=== PATIENT | male | born 1965 | race Caucasian/White ===

== ENCOUNTER 2019-06-05 19:13 | Emergency (ER) | payer MEDICARE ==
[2019-06-05 19:44] VITALS: BP 125/87; PULSE 83
--- NOTE | 2019-06-05 19:48 | EDM.PDOC ---
ED HPI GENERAL MEDICAL PROBLEM - General Chief Complaint: Lower Extremity Injury/Pain Stated Complaint: INJURED RIGHT FOOT Time Seen by Provider: 06/05/19 19:40 Source of Information: Reports: Patient History Limitations: Reports: No Limitations - History of Present Illness INITIAL COMMENTS - FREE TEXT/NARRATIVE: 53-year-old male dropped a 200 pound object on his right foot yesterday, since that time he is unable to bear weight and is developed some swelling and bruising over the top of the foot. He has a superficial abrasion on the anterior ceballos but no significant pain of the lower leg, his pain and concerns are concentrated in his foot. Onset: Sudden Duration: Hour(s): (Roughly 12 hours ago) Location: Reports: Lower Extremity, Right Quality: Reports: Sharp, Stabbing Worsens with: Reports: Other (Weightbearing causes significant increased pain), Movement Associated Symptoms: Reports: No Other Symptoms right foot Pain Score (Numeric/FACES): 8 - Related Data Allergies Allergy/AdvReac Type Severity Reaction Status Date / Time No Known Allergies Allergy Verified 06/05/19 19:32 Home Meds: Home Meds ALPRAZolam [Alprazolam] 1.5 mg PO BID 01/26/15 [History] Aspirin [Adult Low Dose Aspirin EC] 81 mg PO BEDTIME 01/26/15 [History] Desvenlafaxine [Pristiq] 1 tab PO BID 01/26/15 [History] Mirtazapine 1 tab PO BEDTIME 01/26/15 [History] lamoTRIgine [Lamotrigine] 25 mg PO BID 01/26/15 [History] Past Medical History Other Cardiovascular History: Enlarged heart Gastrointestinal History: Reports: GERD Other Musculoskeletal History: States 'Chicken breast" Neurological History: Reports: Migraines Psychiatric History: Reports: Antisocial Behaviors, Anxiety, Depression - Past Surgical History HEENT Surgical History: Reports: Myringotomy w Tube(s) Social & Family History - Tobacco Use Smoking Status *Q: Current Every Day Smoker Years of Tobacco use: 35 Packs/Tins Daily: 1 - Caffeine Use Caffeine Use: Reports: Coffee - Recreational Drug Use Recreational Drug Use: No Review of Systems - Review of Systems Review Of Systems: See Below Constitutional: Denies: Fever Respiratory: Reports: No Symptoms Cardiovascular: Reports: No Symptoms Skin: Reports: Bruising (On the top of the foot), Other (Abrasion on the right ceballos) Neurological: Denies: Headache Psychiatric: Reports: Anxiety ED EXAM, GENERAL - Physical Exam Exam: See Below Exam Limited By: No Limitations General Appearance: Alert, No Apparent Distress Head: Atraumatic Respiratory/Chest: No Respiratory Distress Extremities: Other (Exam is otherwise limited to the lower extremities. Patient has a superficial abrasion on the anterior aspect of the right ceballos, no underlying bony tenderness or deformity. Ankle is nontender, he has swelling and bruising over the top of the foot and is tender to palpation on the dorsal and plantar aspect of the foot.) Course - Vital Signs Last Recorded V/S: Last Vital Signs Temp 98.9 F 06/05/19 19:40 Pulse 83 06/05/19 19:40 Resp 16 06/05/19 19:40 BP 125/87 06/05/19 19:40 Pulse Ox 97 06/05/19 19:40 - Orders/Labs/Meds Orders: Active Orders 24 hr Category Date Time Status Foot Comp Min 3V Rt [CR] Stat Exams 06/05/19 19:44 Taken - Re-Assessments/Exams Free Text/Narrative Re-Assessment/Exam: 06/05/19 19:48 An x-ray of the right foot was obtained. 06/05/19 20:27 X-ray confirmed a minimally displaced transverse fracture of the third and fourth metatarsals. Patient was placed in a walking boot and encouraged to recheck with his primary provider next week. Departure - Departure Time of Disposition: 20:36 Disposition: Home, Self-Care 01 Clinical Impression: Fracture of metatarsal bone of right foot Qualifiers: Encounter type: initial encounter Metatarsal bone: third Fracture type: closed Fracture alignment: nondisplaced Qualified Code(s): S92.334A - Nondisplaced fracture of third metatarsal bone, right foot, initial encounter for closed fracture Fracture of metatarsal of right foot, closed Qualifiers: Encounter type: initial encounter Metatarsal bone: fourth Fracture alignment: nondisplaced Qualified Code(s): S92.344A - Nondisplaced fracture of fourth metatarsal bone, right foot, initial encounter for closed fracture - Discharge Information Instructions: Metatarsal Fracture Referrals: PCP,None [Primary Care Provider] - Forms: ED Department Discharge Care Plan Goals: Wear boot for support for the next 3 to 5 weeks. Use crutches initially to assist with weightbearing. Elevate the foot when able, and I would recommend you following with your primary provider next week to monitor your progress. Sepsis Event Note - Evaluation Sepsis Screening Result: No Definite Risk - Focused Exam Vital Signs: Vital Signs Temp Pulse Resp BP Pulse Ox 06/05/19 19:40 98.9 F 83 16 125/87 97 Date Exam was Performed: 06/06/19 Time Exam was Performed: 00:00 - My Orders Last 24 Hours: My Active Orders 06/05/19 19:44 Foot Comp Min 3V Rt [CR] Stat - Assessment/Plan Last 24 Hours: My Active Orders 06/05/19 19:44 Foot Comp Min 3V Rt [CR] Stat
--- NOTE | 2019-06-08 10:10 | CR ---
FOOT RIGHT 3 views CLINICAL HISTORY:Trauma FINDINGS:There are oblique essentially nondisplaced fractures of the third and fourth metatarsals Impression: Oblique fractures third and fourth metatarsals
== END 2019-06-05 20:36 | disposition home or self-care (01) ==
LOC: JP.ED 19:13
DX: S92.334A Nondisplaced fracture of third metatarsal bone, right foot, initial encounter for closed fracture (principal); S92.344A Nondisplaced fracture of fourth metatarsal bone, right foot, initial encounter for closed fracture; K21.9 Gastro-esophageal reflux disease without esophagitis; F41.9 Anxiety disorder, unspecified; F32.9 Major depressive disorder, single episode, unspecified; F17.210 Nicotine dependence, cigarettes, uncomplicated; Z79.82 Long term (current) use of aspirin; Z79.899 Other long term (current) drug therapy; W20.8XXA Other cause of strike by thrown, projected or falling object, initial encounter
CPT/HCPCS: 73630-26-RT; 73630-RT; 99283; 99283-25

== ENCOUNTER 2023-10-31 16:15 | Emergency (ER) | payer MEDICARE ==
[2023-10-31 16:50] VITALS: BP 134/88; PULSE 102
[2023-10-31] MEDS: Diphtheria/Tetanus Toxoids,Adult (Td) 0.5 ML SDV IM ONE (17:59)
== END 2023-10-31 18:31 | disposition home or self-care (01) ==
LOC: JP.ED 16:15
DX: S91.311A Laceration without foreign body, right foot, initial encounter (principal); F17.210 Nicotine dependence, cigarettes, uncomplicated; Z79.82 Long term (current) use of aspirin; Z79.899 Other long term (current) drug therapy; Z23 Encounter for immunization; W26.8XXA Contact with other sharp object(s), not elsewhere classified, initial encounter; Y93.89 Activity, other specified
CPT/HCPCS: 12001; 73630-26-RT; 73630-RT; 90471; 90714; 99282; 99283-25